=== PATIENT | female | born 1980 | race American Indian/Alaskan Native ===

== ENCOUNTER 2017-06-14 20:31 | Emergency (ER) | payer MEDICAID ==
[2017-06-15] MEDS ORDERED: TYLENOL PO ONE (00:48)
--- NOTE | 2017-06-15 02:51 | Emergency Department Report ---
ED Laceration HPI - HPI Chief Complaint: Laceration/Recheck/Suture Stated Complaint: CUT HAND Time Seen by Provider: 06/15/17 02:48 Occurred When: Today Location: Upper Extremity (left thumb) Severity: severe (8 out of 10) Tetanus Status: Not up to Date Laceration Symptoms: Yes Pain (left thumb at laceration site), No Foreign Body Sensation, No Numbness, No Weakness Other History: Sent here report that she cut her left thumb on ice fishing. Tetanus vaccine is not up-to-date. She said it was bleeding a lot but she was able to stop the bleeding and with pressure. Reports pain data to 10 and throbbing. Denies any numbness or tingling to lt thumb. Denies any loss of sensation or restriction in movement to left thumb. She reports that she placed ice on site. ED Review of Systems ROS: Stated complaint: CUT HAND Other details as noted in HPI Comment: All other systems reviewed and negative Constitutional: no symptoms reported Respiratory: no symptoms reported Cardiovascular: denies: chest pain, palpitations, edema, syncope Gastrointestinal: denies: nausea, vomiting Skin: other (laceration left thumb) Neurological: denies: headache, numbness, paresthesias, abnormal gait, vertigo ED Past Medical Hx - Past Medical History Previous Medical History?: No - Surgical History Past Surgical History?: No - Family History Family history: no significant - Social History Smoking Status: Current Every Day Smoker Substance Use Type: None - Medications Home Medications: Home Medications Medication Instructions Recorded Confirmed Last Taken Type Cephalexin [Keflex] 500 mg PO Q8HR #21 cap 06/15/17 Unknown Rx Ibuprofen [Motrin] 600 mg PO Q8H PRN #15 tablet 06/15/17 Unknown Rx Laceration Physical Exam - Exam General: Vital signs noted. No distress. Alert and acting appropriately. This is a 37-year-old female well-nourished well-developed in no acute distress. CV: S1, S2. Regular rate rhythm. Negative murmur Lungs: Auscultated bilaterally, no rhonchi wheezes or rales. Extremity: Clubbing, cyanosis or edema. +2 pulses in all extremities. No neurovascular compromise Psych: Normal mood and behavior. Wound Length (cm): 1 (linear and superficial) Laceration Location: Upper Extremity (left, dorsal aspect of thumb) Laceration Exam: Yes Normal Distal CMS (patient with full range of motion to the thumb. Capillary refill is less than 3 seconds the fingers. ), No Foreign Body, No Exposed Tendon, Vessel, or Nerve, No Tendon Injury ED Course Vital Signs 06/14/17 06/15/17 20:41 00:53 Temperature 99.3 F Pulse Rate 78 Respiratory 18 18 Rate Blood Pressure 110/70 O2 Sat by Pulse 99 Oximetry - Reevaluation(s) Reevaluation #1: 06/15/17 04:36 She received Tylenol 650 mg by mouth in triage area which did not relieve her pain therefore she was given Motrin 800 mg in emergency room which helped her pain. She was also given Boostrix 0.5 mL to update tetanus and Keflex 5 injured milligram by mouth prophylaxis for infection. She had no adverse reaction from medication. Please refer to procedure note for laceration repair - Laceration /Wound Repair Left Finger Wound Location: upper extremity (F dorsal aspect of thumb) Wound Length (cm): 1 Wound's Depth, Shape: superficial, linear Wound Explored: clean Irrigated w/ Saline (ccs): 300 Betadine Prep?: Yes Anesthesia: 1% Lidocaine Volume Anesthetic (ccs): 0 (0.5 mL) Wound Debrided: moderate Wound Repaired With: sutures Suture Size/Type: 4:0, proline Number of Sutures: 5 Layer Closure?: No Sterile Dressing Applied?: Yes Progress: Sterile bulky dressing placed the site after laceration repair. ED Medical Decision Making - Medical Decision Making ED course: Pt here report that she has laceration to her left thumb from cut in on ice machine. She has no neurovascular compromise and strong pulses at 2+. She was given Tylenol 650 mg in triage area with minimal relief of pain therefore she was given additional Motrin 800 mg by mouth which relieved her pain to her left thumb. Patient was also given Boostrix 0.5 mL to update tetanus and Keflex 500 mg for prevention of infection. Laceration repaired under sterile procedure please refer to procedure note for detail. Patient instructed to return in 7-10 days to have stitches removed. And I also encouraged her to refrain from doing vigorous activity where she is using her thumb as stitches can come loose with increased activity. I told her to keep dressing on for 24 hours and remove but she should allow 72 hours after dressing removal for starting to do any kind of some movement. Patient was sinus and a discharge instruction and treatment plan and discharged home with prescription for Keflex and Motrin. Critical care attestation.: If time is entered above; I have spent that time in minutes in the direct care of this critically ill patient, excluding procedure time. ED Disposition Clinical Impression: Pain of left thumb Laceration of left thumb Qualifiers: Encounter type: initial encounter Damage to nail status: without damage Foreign body presence: without foreign body Qualified Code(s): S61.012A - Laceration without foreign body of left thumb without damage to nail, initial encounter Disposition: - TO HOME OR SELFCARE Is pt being admited?: No Does the pt Need Aspirin: No Condition: Stable Instructions: Arthralgia (ED), Finger Laceration (ED) Additional Instructions: Keep affected area clean and dry No vigorous activity to left hand for 4 days Take Antibiotics a prescribes You can remove dressing in 24 gours return to Ed in 7-10 days for suture removal Prescriptions: Cephalexin [Keflex] 500 mg PO Q8HR #21 cap Ibuprofen [Motrin] 600 mg PO Q8H PRN #15 tablet PRN Reason: Pain Referrals: PRIMARY CARE,MD [Primary Care Provider] - 2-3 Days Return to, ER [Other] - 7-10 days (For suture removal) Forms: Accompanied Note, Work/School Release Form(ED)
[2017-06-15] MEDS ORDERED: KEFLEX PO ONE (02:54)
[2017-06-15] MEDS ORDERED: BOOSTRIX IM ONE (02:54)
[2017-06-15] MEDS ORDERED: XYLOCAINE 1% MPF 5 mL INFILTRATI ONE (02:54)
[2017-06-15] MEDS ORDERED: MOTRIN PO ONE (02:54)
[2017-06-15] MEDS ORDERED: NACL 0.9% IR ONE (02:59)
[2017-06-15 11:35] VITALS: BP 105/69
== END 2017-06-15 04:51 | disposition home or self-care (01) ==
LOC: ED 20:31
DX: S61.012A Laceration without foreign body of left thumb without damage to nail, initial encounter (principal); M79.645 Pain in left finger(s); F17.200 Nicotine dependence, unspecified, uncomplicated; W45.8XXA Other foreign body or object entering through skin, initial encounter; Y93.9 Activity, unspecified; Y99.9 Unspecified external cause status; Y92.89 Other specified places as the place of occurrence of the external cause
CPT/HCPCS: 90471; 90715